=== PATIENT | male | born 1990 | race Hispanic/Latino ===

== ENCOUNTER 2020-11-19 05:50 | Emergency (ER) | payer OTHER | END 2020-11-19 06:15 | LOC: EDH 05:50 | DX: S60.511A Abrasion of right hand, initial encounter (principal); Z72.0 Tobacco use; V49.49XA Driver injured in collision with other motor vehicles in traffic accident, initial encounter; Y93.89 Activity, other specified; Y92.89 Other specified places as the place of occurrence of the external cause; Y99.8 Other external cause status ==